=== PATIENT | female | born 1980 | race Caucasian/White ===

== ENCOUNTER 2016-11-23 22:35 | Emergency (ER) | payer OTHER ==
[~2016-11-23] VITALS: Ht 160 cm; Wt 81.7 kg
[2016-11-23] MEDS ORDERED: IBUPROFEN 200200 M1 PO (22:44)
[2016-11-23] MEDS ORDERED: DIFLUCAN200 MG PO (22:44)
[2016-11-23] MEDS ORDERED: AMOXICILLIN 50500 MG PO (22:44)
[2016-11-23] MEDS ORDERED: OMEGA-31000 M1 PO (22:45)
[2016-11-23 23:08] LABS: URINE BILIRUBIN NEGATIVE (Negative); URINE BLOOD NEGATIVE (Negative); URINE COLOR YELLOW; URINE GLUCOSE-RANDOM* NEGATIVE (Negative); URINE KETONES NEGATIVE (Negative); URINE NITRITE NEGATIVE (Negative); URINE PROTEIN (DIPSTICK) NEGATIVE (Negative); URINE UROBILINOGEN 0.2 E.U./dl (0.2-1.0)
[2016-11-23] MEDS ORDERED: AMOXICILLIN500 M1 PO (23:23)
[2016-11-23] MEDS ORDERED: IBUPROFEN 600600 M1 PO (23:23)
[2016-11-23] MEDS ORDERED: OMEPRAZOLE40 MG PO (23:58)
[2016-11-24 00:30] VITALS: BP 138/84
== END 2016-11-24 00:32 | disposition home or self-care (01) ==
LOC: ER 22:35
PROVIDERS: Nurse Practitioner
DX: H66.92 Otitis media, unspecified, left ear (principal); J02.9 Acute pharyngitis, unspecified

== ENCOUNTER 2016-11-29 17:21 | Emergency (ER) | payer OTHER ==
[~2016-11-29] VITALS: Ht 167.6 cm; Wt 72.6 kg
[~2016-11-29 17:21] MED LIST: AMOXICILLIN 50500 MG PO; AMOXICILLIN500 M1 PO; DIFLUCAN200 MG PO; IBUPROFEN 200200 M1 PO; IBUPROFEN 600600 M1 PO; OMEGA-31000 M1 PO; OMEPRAZOLE40 MG PO
[2016-11-29 18:31] VITALS: BP 144/90
== END 2016-11-29 18:32 | disposition home or self-care (01) ==
LOC: ER 17:21
DX: J06.9 Acute upper respiratory infection, unspecified (principal); H92.02 Otalgia, left ear; Z91.018 Allergy to other foods; Z98.890 Other specified postprocedural states